=== PATIENT | female | born 1980 | race Two or more races ===

== ENCOUNTER 2017-01-17 11:54 | Emergency (ER) | payer MEDICAID ==
[~2017-01-17] VITALS: Ht 144.8 cm; Wt 72.6 kg
[2017-01-17] MEDS ORDERED: NKM (12:16)
--- NOTE | 2017-01-17 12:28 | Emergency Room Report ---
History of Present Illness General Chief Complaint: Laceration Source: Patient Present Illness HPI 36-year-old female presents from the emergency department complaining of laceration to the palm of the left hand x1 day. Patient states she sustained a laceration while cutting food while cooking. Patient states her tetanus vaccination was more than 10 years ago. Patient denies taking blood thinning medications. Reports mild bleeding at this time patient is right-hand dominant. Denies numbness tingling or loss of sensation or gross motor movements of the extremities, incontinence of bowel or bladder. Denies CP, Palpitations, LOC, AMS, dizziness, Changes in Vision, Sensation, paresthesias, or a sudden severe headache. Allergies: Coded Allergies: No Known Allergies (Unverified , 01/17/17) Patient History Past Medical History: see triage record Past Surgical History: none Pertinent Family History: none Last Menstrual Period: 01/10/2017 Now: No : 6 Para: 4 Reviewed Nursing Documentation: PMH: Agreed, PSxH: Agreed Nursing Documentation-PMH Past Medical History: No Stated History Review of Systems All Other Systems: negative except mentioned in HPI Physical Exam Vital Signs Date Time Temp Pulse Resp B/P Pulse Ox O2 Delivery O2 Flow Rate FiO2 01/17/17 12:09 97.9 76 16 126/74 99 Room Air Sp02 EP Interpretation: reviewed, normal General Appearance: no apparent distress, alert, GCS 15, non-toxic Head: normocephalic, atraumatic Eyes: bilateral eye PERRL, bilateral eye normal inspection ENT: hearing grossly normal, normal pharynx, no angioedema, normal voice Neck: full range of motion, supple/symm/no masses Respiratory: chest non-tender, lungs clear, normal breath sounds, speaking full sentences Cardiovascular #1: regular rate, rhythm, no edema Musculoskeletal: back normal, gait/station normal, normal range of motion, non- tender Neurologic: alert, oriented x3, responsive, motor strength/tone normal, sensory intact, speech normal Psychiatric: judgement/insight normal, memory normal, mood/affect normal, no suicidal/homicidal ideation Skin: normal color, no rash, warm/dry, well hydrated, laceration - 1.5 cm laceration to the palm of the left hand just between the thumb and index finger. Lymphatic: no adenopathy Procedures Laceration/Wound Repair Laceration/Wound Repair : Consent: Verbal Wound Location: upper extremity - left palm Wound's Depth, Shape: linear Wound Length (cm): 1 Wound Explored: clean Irrigated w/ Saline (ccs): 200 Betadine Prep?: No Anesthesia: Lidocaine w/ Epi Volume Anesthetic (ccs): 3 Wound Debrided: minimal Wound Repaired With: sutures Suture Size/Type: 5:0 Number of Sutures: 6 Layer Closure?: No Sterile Dressing Applied?: Yes Splint Applied?: No Sling Applied?: No Patient Tolerated: Well Complications: None Medical Decision Making PA Attestation Dr. Yost is my supervising Physician whom patient management has been discussed with. Diagnostic Impression: Primary Impression: Laceration ER Course 36-year-old female presents from the emergency department complaining of laceration to the palm of the left hand x1 day. Patient states she sustained a laceration while cutting food while cooking. Patient states her tetanus vaccination was more than 10 years ago. Patient denies taking blood thinning medications. Reports mild bleeding at this time patient is right-hand dominant Ddx considered but are not limited to laceration, tendon injury, cellulitis, amputation Vital signs: are WNL, pt. is afebrile H&PE are most consistent with: linear left palm laceration approx 1.5 cm in length ORDERS: none required at this time, the diagnosis is clinical ED INTERVENTIONS: -Tetanus vaccine was administered as pt. vaccination status was unknown. - The wound was copiously irrigated with normal saline, and explored for foreign body for which no FB was found. - pt. is anesthetized with 1%lidocaine w. epi. - The wound was approximated and closed using 6 interrupted 5.0 Prolene sutures. -Bacitracin was applied with sterile dressing and gauze wrap by public works technician. Discussed with patient: That we make every effort to approximate the laceration as best as we can so that scarring will be as cosmetically pleasing as possible with our limited cosmetic skill set in the Emergency dept. Regardless of our best efforts there will be scarring after laceration repair. The extent of scarring is unknown at this time. DISCHARGE: At this time pt. is stable for d/c to home. Will provide printed patient care instructions, and any necessary prescriptions. Care plan and follow up instructions have been discussed with the patient prior to discharge. Last Vital Signs Date Time Temp Pulse Resp B/P Pulse Ox O2 Delivery O2 Flow Rate FiO2 01/17/17 12:09 97.9 76 16 126/74 99 Room Air Disposition: HOME, SELF-CARE Condition: Stable Scripts Bacitracin Zinc/Polymyx B Sulf (HM DOUBLE ANTIBIOTIC OINTMENT) 28.4 Gm Oint...g. 1 APPLIC TP BID, #28.4 GM Prov: Jyoti Dong 01/17/17 Cephalexin* (KEFLEX*) 500 Mg Capsule 500 MG ORAL EVERY 12 HOURS for 7 Days, #14 CAP 0 Refills Prov: Jyoti Dong 01/17/17 Referrals: NOT CHOSEN [facility]/,REFERRING (PCP) Patient Instructions: Laceration Care, Adult Additional Instructions: Take medications as directed. Follow up with PCP in 3-5 days remove sutures in 7-10 days Return sooner to ED if new symptoms occur, or current symptoms become worse. - Please note that this Emergency Department Report was dictated using [employer] control worker technology software, occasionally this can lead to erroneous entry secondary to interpretation by the dictation equipment. Jyoti Dong Jan 17, 2017 12:28
[2017-01-17] MEDS ORDERED: CEPHALEXIN500 MG ORAL (12:29)
[2017-01-17] MEDS ORDERED: HM DOUBLE ANT28.4 G1 TP (12:29)
[2017-01-17] MEDS ORDERED: Hydrogen Peroxide 120ml Bottle TOPIC ONE (12:30)
[2017-01-17] MEDS ORDERED: Bacitracin Oint UD TOPIC ONE (12:30)
[2017-01-17] MEDS ORDERED: TdaP Vaccine 0.5ml Syr IM ONE (12:30)
[2017-01-17] MEDS ORDERED: Lidocaine 1% 10mg/ml/Epi 0.005mg/ml 30ml vial INJ ONE (12:30)
[2017-01-17 12:36] VITALS: BP 126/74
[2017-01-17 12:59] VITALS: BP 126/74
== END 2017-01-17 13:12 | disposition home or self-care (01) ==
LOC: EMR 12:14
DX: S61.412A Laceration without foreign body of left hand, initial encounter (principal); W45.8XXA Other foreign body or object entering through skin, initial encounter; Y93.G3 Activity, cooking and baking; Y92.9 Unspecified place or not applicable; Z23 Encounter for immunization
CPT/HCPCS: 90471; 90715

== ENCOUNTER 2017-01-25 11:44 | Emergency (ER) | payer MEDICAID ==
[~2017-01-25] VITALS: Ht 154.9 cm; Wt 59.0 kg
[~2017-01-25 11:44] MED LIST: CEPHALEXIN500 MG ORAL; HM DOUBLE ANT28.4 G1 TP; NKM
[2017-01-25 11:51] VITALS: BP 111/53
[2017-01-25] MEDS ORDERED: BACITRACIN-P28.35 GM TP (12:21)
[2017-01-25] MEDS ORDERED: Bacitracin Oint UD TOPIC ONE (12:30)
[2017-01-25 12:55] VITALS: BP 111/53
--- NOTE | 2017-01-25 21:34 | Emergency Room Report ---
History of Present Illness General Chief Complaint: Wound Recheck/Suture Removal Source: Patient Present Illness HPI 36-year-old female presents to emergency Department complaining of laceration to the palm of the left hand that requires suture removal. Patient sustained laceration approximately 7 days ago and had sutures placed here in the emergency department. Patient denies erythema she reports mild itching denies discharge denies pain. Patient reports mild dryness to the area about a laceration. Patient denies fevers or chills. Denies numbness tingling or loss of sensation or gross motor movements of the extremities, incontinence of bowel or bladder. Denies CP, Palpitations, LOC, AMS, dizziness, Changes in Vision, Sensation, paresthesias, or a sudden severe headache. Allergies: Coded Allergies: No Known Allergies (Unverified , 01/17/17) Patient History Past Medical History: see triage record Past Surgical History: none Pertinent Family History: none Now: No Immunizations: UTD Reviewed Nursing Documentation: PMH: Agreed, PSxH: Agreed Nursing Documentation-PMH Past Medical History: No Stated History Review of Systems All Other Systems: negative except mentioned in HPI Physical Exam Vital Signs Date Time Temp Pulse Resp B/P Pulse Ox O2 Delivery O2 Flow Rate FiO2 01/25/17 11:51 97.9 80 18 111/53 98 Room Air Sp02 EP Interpretation: reviewed, normal General Appearance: no apparent distress, alert, GCS 15, non-toxic Head: normocephalic, atraumatic Eyes: bilateral eye PERRL, bilateral eye normal inspection ENT: hearing grossly normal, normal pharynx, no angioedema, normal voice Neck: full range of motion, supple/symm/no masses Respiratory: lungs clear, normal breath sounds, speaking full sentences Cardiovascular #1: regular rate, rhythm, normal capillary refill Musculoskeletal: back normal, gait/station normal, normal range of motion, non- tender, other Neurologic: alert, oriented x3, responsive, motor strength/tone normal, sensory intact, speech normal Psychiatric: judgement/insight normal, memory normal, mood/affect normal, no suicidal/homicidal ideation Skin: normal color, no rash, warm/dry, well hydrated, wd healing/no infection noted - 2cm laceration with sutures noted on the left palm between the thumb and index finger, no d/c no erythema noted, skin is dry. Lymphatic: no adenopathy Medical Decision Making PA Attestation Dr. Judd is my supervising Physician whom patient management has been discussed with. Diagnostic Impression: Primary Impression: Encounter for removal of sutures ER Course Pt. presents to the ED c/o having sutures to the left palm that need to be removed s/p wound closure 7 days ago. Ddx considered but are not limited to laceration, tendon injury, cellulitis, dehiscence. Vital signs: are WNL, pt. is afebrile H&PE are most consistent with: healed laceration of the left palm, no secondary infection noted. ORDERS: none required at this time, the diagnosis is clinical ED INTERVENTIONS: - 6 Sutures removed. - mild dehiscence noted at the edge of the laceration , skin is dry, d/w pt. that this area may not take, however no evidence of infection. recommended use of antibiotic ointment to keep the skin of the palm well moisturized. DISCHARGE: At this time pt. is stable for d/c to home. Will provide printed patient care instructions, and any necessary prescriptions. Care plan and follow up instructions have been discussed with the patient prior to discharge. Last Vital Signs Date Time Temp Pulse Resp B/P Pulse Ox O2 Delivery O2 Flow Rate FiO2 01/25/17 12:55 97.9 80 18 111/53 98 Room Air Disposition: HOME, SELF-CARE Condition: Stable Scripts Bacitracin/Polymyxin B Sulfate (BACITRACIN-POLYMYXIN OINTMENT) 28.35 Gm Oint...g. 1 APPLIC TP BID, #28.3 GM Prov: Jyoti Dong 01/25/17 Referrals: NOT CHOSEN [facility]/MD,REFERRING (PCP) Patient Instructions: Wound Check Additional Instructions: Take medications as directed. Follow up with PCP in 3-5 days Return sooner to ED if new symptoms occur, or current symptoms become worse. Be careful with your hand for 1 week, apply ointment regularly, and keep it clean. - Please note that this Emergency Department Report was dictated using [employer] winder operator technology software, occasionally this can lead to erroneous entry secondary to interpretation by the dictation equipment. Jyoti Dong Jan 25, 2017 21:34
== END 2017-01-25 12:55 | disposition home or self-care (01) ==
LOC: EMR 12:17
DX: S61.412D Laceration without foreign body of left hand, subsequent encounter (principal); Z48.02 Encounter for removal of sutures
CPT/HCPCS: 99283